=== PATIENT | female | born 1945 | race Caucasian/White ===

== ENCOUNTER 2018-06-09 08:46 | Emergency (ER) | payer MEDICARE, BC ==
[~2018-06-09] VITALS: Ht 162.6 cm; Wt 68.0 kg
[2018-06-09 09:03] VITALS: BP 123/72
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
--- NOTE | 2018-06-09 09:28 | RAD ---
Left ring finger, 3 views, 06/09/2018: HISTORY: Injury No fracture or dislocation is identified. IMPRESSION: No acute bony abnormality is detected. Electronically signed by: Aureliano Yip MD (06/09/2018 9:24 AM) [facility]
== END 2018-06-09 09:36 | disposition home or self-care (01) ==
LOC: ER 08:46
DX: S67.191A Crushing injury of left index finger, initial encounter (principal); Z88.6 Allergy status to analgesic agent; Z88.5 Allergy status to narcotic agent; Z91.041 Radiographic dye allergy status; Z88.8 Allergy status to other drugs, medicaments and biological substances; W23.0XXA Caught, crushed, jammed, or pinched between moving objects, initial encounter; Y93.89 Activity, other specified; Y92.89 Other specified places as the place of occurrence of the external cause; Y99.8 Other external cause status
CPT/HCPCS: 73140; 99283